=== PATIENT | male | born 1950 | race Caucasian/White ===

== ENCOUNTER 2021-12-14 16:20 | Inpatient (IN) ==
[2021-12-14 17:05] LABS: ABS Lymphocytes 0.9 10^3/ul (1.0-4.8); ABS Neutrophils 12.7 10^3/ul (1.5-7.7); Eosinophil % 0.2 %; Hematocrit 42 % (42-52); Hemoglobin 13.9 g/dL (14.0-18.0); Lymphocyte % 6.3 %; Mean Corpuscular HGB Conc 34 g/dL (31-36); Mean Corpuscular Hemoglobin 31 pg (27-31); Mean Corpuscular Volume 92 fL (80-94); Mean Platelet Volume 9.3 fL (7.4-10.4); Nucleated Red Blood Cells % 0.1; Platelet Count 231 10^3/uL (150-450); Red Blood Count 4.53 10^6 /uL (4.18-5.48); Red Cell Distribution Width 14 % (10-15); White Blood Count 14.6 10^3/uL (3.5-10.8)
[2021-12-14] MEDS ORDERED: fentaNYL 100 mcg/2 ml 50 MCG/ML VIAL ONE (17:26)
[2021-12-14 17:48] LABS: Albumin 3.3 g/dL (3.2-5.2); Albumin/Globulin Ratio 1.3 (1-3); C Reactive Protein 302.33 mg/L (<8.01); Calcium 8.6 mg/dL (8.6-10.3); Globulin 2.6 g/dL (2-4); Potassium 3.7 mmol/L (3.5-5.0); Total Bilirubin 0.7 mg/dL (0.2-1.0); Total Protein 5.9 g/dL (6.4-8.9); eGFR CKD-EPI 85.6 (>60)
[2021-12-14] MEDS: cefTRIAXone 1 gm/50 mL D5W 1 GM/50 ML BAG IV SCH (22:33)
[2021-12-15 00:36] LABS: Body Fluid WBC 352831 /mcL
[2021-12-15 01:46] LABS: Body Fluid Other Cells 10; Body Fluid Total Cells Counted 200
[2021-12-15 01:58] LABS: Body Fluid Appearance Cloudy; Body Fluid Color Yellow; Body Fluid Source Peritonial Flu
[2021-12-15 06:33] LABS: Potassium 3.6 mmol/L (3.5-5.0)
[2021-12-15] MEDS ORDERED: Dextrose 50% Syringe 50 ml 25 GM/50 ML SYRINGE IV PUSH PRN ×2 (10:07→16:44)
[2021-12-15] MEDS: Potassium Chlor 20 meq TAB.ER PO SCH ×2 (11:21→20:33)
[2021-12-15] MEDS: Enoxaparin 40 MG/0.4 ML SYR SUBCUT SCH (20:33)
[2021-12-15] MEDS: cefTRIAXone 1 gm/50 mL D5W 1 GM/50 ML BAG IV SCH (21:14)
[2021-12-16 05:57] LABS: ABS Basophils 0.1 10^3/ul (0-0.2); ABS Eosinophils 0.2 10^3/ul (0-0.6); ABS Lymphocytes 1.4 10^3/ul (1.0-4.8); ABS Monocytes 0.6 10^3/ul (0-0.8); ABS Neutrophils 5.6 10^3/ul (1.5-7.7); Hematocrit 37 % (42-52); Hemoglobin 12.8 g/dL (14.0-18.0); Lymphocyte % 18.3 %; Mean Corpuscular HGB Conc 35 g/dL (31-36); Mean Corpuscular Hemoglobin 32 pg (27-31); Mean Corpuscular Volume 92 fL (80-94); Mean Platelet Volume 9.1 fL (7.4-10.4); Platelet Count 233 10^3/uL (150-450); Red Blood Count 4.01 10^6 /uL (4.18-5.48); Red Cell Distribution Width 14 % (10-15); White Blood Count 7.8 10^3/uL (3.5-10.8)
[2021-12-16 06:34] LABS: Calcium 8.1 mg/dL (8.6-10.3); Magnesium 2.1 mg/dL (1.9-2.7); Phosphorus 3.6 mg/dL (2.5-5.0); Potassium 4.3 mmol/L (3.5-5.0); eGFR CKD-EPI 92.4 (>60)
[2021-12-16] MEDS: Potassium Chlor 20 meq TAB.ER PO SCH (10:56)
[2021-12-16] MEDS: cefTRIAXone 1 gm/50 mL D5W 1 GM/50 ML BAG IV SCH (20:14)
[2021-12-16] MEDS: Enoxaparin 40 MG/0.4 ML SYR SUBCUT SCH (20:15)
[2021-12-17 06:21] LABS: ABS Basophils 0.1 10^3/ul (0-0.2); ABS Eosinophils 0.2 10^3/ul (0-0.6); ABS Lymphocytes 1.5 10^3/ul (1.0-4.8); ABS Monocytes 0.6 10^3/ul (0-0.8); ABS Neutrophils 4.8 10^3/ul (1.5-7.7); Eosinophil % 3.1 %; Hematocrit 37 % (42-52); Hemoglobin 13.1 g/dL (14.0-18.0); Lymphocyte % 21.4 %; Mean Corpuscular HGB Conc 35 g/dL (31-36); Mean Corpuscular Hemoglobin 33 pg (27-31); Mean Corpuscular Volume 92 fL (80-94); Mean Platelet Volume 9.3 fL (7.4-10.4); Platelet Count 261 10^3/uL (150-450); Red Blood Count 4.04 10^6 /uL (4.18-5.48); Red Cell Distribution Width 14 % (10-15); White Blood Count 7.2 10^3/uL (3.5-10.8)
[2021-12-17 06:56] LABS: Phosphorus 3.1 mg/dL (2.5-5.0); Potassium 4.5 mmol/L (3.5-5.0); eGFR CKD-EPI 91.1 (>60)
[2021-12-17] MEDS: Potassium Chlor 20 meq TAB.ER PO SCH (09:17)
[2021-12-17] MEDS ORDERED: Iodixanol (CONTRAST) 320 MG/ML 100 ML SDV IV ONE (11:41)
[2021-12-17 13:29] LABS: C Reactive Protein 111.12 mg/L (<8.01)
[2021-12-17] MEDS: cefTRIAXone 1 gm/50 mL D5W 1 GM/50 ML BAG IV SCH (21:13)
[2021-12-17] MEDS: Enoxaparin 40 MG/0.4 ML SYR SUBCUT SCH (21:13)
[2021-12-18 05:27] LABS: ABS Basophils 0.1 10^3/ul (0-0.2); ABS Eosinophils 0.2 10^3/ul (0-0.6); ABS Lymphocytes 1.6 10^3/ul (1.0-4.8); ABS Monocytes 0.6 10^3/ul (0-0.8); ABS Neutrophils 4.7 10^3/ul (1.5-7.7); Eosinophil % 3.1 %; Hematocrit 38 % (42-52); Hemoglobin 12.9 g/dL (14.0-18.0); Lymphocyte % 22.8 %; Mean Corpuscular HGB Conc 34 g/dL (31-36); Mean Corpuscular Hemoglobin 31 pg (27-31); Mean Corpuscular Volume 93 fL (80-94); Mean Platelet Volume 8.8 fL (7.4-10.4); Nucleated Red Blood Cells % 0.2; Platelet Count 283 10^3/uL (150-450); Red Blood Count 4.14 10^6 /uL (4.18-5.48); Red Cell Distribution Width 14 % (10-15); White Blood Count 7.2 10^3/uL (3.5-10.8)
[2021-12-18 06:13] LABS: Potassium 4.7 mmol/L (3.5-5.0); eGFR CKD-EPI 91.8 (>60)
[2021-12-18] MEDS: Potassium Chlor 20 meq TAB.ER PO SCH (08:41)
[2021-12-18 11:32] VITALS: BP 92/69
== END 2021-12-18 15:45 | disposition home or self-care (01) | DRG 372 ==
LOC: ED 16:20 → SUATTDRO 21:09 → EDHOLD 21:09 → MED 23:07
PROVIDERS: ADMIT Hospitalist; ATTEND Internal Medicine